=== PATIENT | female | born 1950 | race American Indian/Alaskan Native ===

== ENCOUNTER 2019-05-28 12:15 | Outpatient (CLI) | payer OTHER, MEDICARE ==
--- NOTE | 2019-05-28 13:51 | Mammography Report ---
DIGITAL SCREENING MAMMOGRAM WITH CAD, 05/28/2019 INDICATION: Routine screening mammography. TECHNIQUE: Digital bilateral 2D mammography was obtained in the craniocaudal and mediolateral obliq ue projections. COMPARISON: None. This examination will serve as a baseline. FINDINGS: Breast Density: The breasts are almost entirely fatty. There is no evidence of dominant mass, suspicious calcifications or architectural distortion in eithe r breast. IMPRESSION: BI-RADS Category 1: Negative. No mammographic evidence of malignancy. Recommend routine screening m ammography in one year. A "normal" or negative report should not discourage follow up or biopsy of a clinically significant f inding. A written summary of these findings will be mailed to the patient. The patient will be entered into a mammography reporting system which will generate a reminder letter for the patient's next appointmen t at the appropriate interval. The [employer] recommends yearly mammograms starting at age 40 and continuing as l berny as a woman is in good health. Breast MRI is recommended for women with an approximate 20-25% or greater lifetime risk of breast cancer, including women with a strong family history of breast or ova arnulfo cancer or who have been treated for Hodgkin's disease. Signer Name: Michael Wilkinson MD Signed: 05/28/2019 2:47 PM Workstation Name: [id number]
== END 2019-05-28 12:16 | disposition home or self-care (01) ==
LOC: SPVWC 12:15
PROVIDERS: ATTEND Internal Medicine Cardiovascular Disease
DX: Z12.31 Encounter for screening mammogram for malignant neoplasm of breast (principal)
CPT/HCPCS: 77067